=== PATIENT | female | born 2000 ===

== ENCOUNTER 2024-03-16 23:45 | Emergency (ER) | payer OTHER ==
[~2024-03-16] VITALS: Ht 167.6 cm; Wt 72.7 kg
[2024-03-16 23:55] VITALS: BP 103/66; PULSE 102; RESP 19; TEMP 98.3; O2SAT 100
== END 2024-03-17 01:51 | disposition left against medical advice (07) ==
LOC: EMS 23:45
DX: N89.8 Other specified noninflammatory disorders of vagina (principal); R30.0 Dysuria; Z53.21 Procedure and treatment not carried out due to patient leaving prior to being seen by health care provider